=== PATIENT | male | born 1980 | race Caucasian/White ===

== ENCOUNTER 2016-07-03 22:58 | Emergency (ER) | payer SELFPAY ==
[~2016-07-03] VITALS: Ht 180.3 cm; Wt 81.0 kg
[~2016-07-03 22:58] MED LIST: CLON1TAB PO; CLON1TAB3 PO; CYCL10TA2 PO; HYDR-971 PO; HYDR12.58 PO; IBUP800T PO; IOHE240V IV; IOHE350I IV; OMEP20CA5 PO; ONDA4TAB10 SL; SERT25TA PO; TRAM50TA PO
[2016-07-03 23:00] VITALS: BP 138/101
--- NOTE | 2016-07-03 23:17 | PHYS DOC ---
General Stated Complaint: LEFT HAND INJURY Time Seen by MD: 23:15 Source: patient Problems: History of Present Illness Initial Comments Patient here for left index finger injury. Patient says that he fell about 3 weeks ago hyperextended his left index finger. He says he had some pain and swelling at the time, but went down and he was doing fine. However, 3 days ago noted increasing pain and swelling in the digit, and now says the pain goes up to his entire body and makes it such that he is in pain throughout his entire system: Time. Patient reports no new history of injury or trauma other than 3 weeks ago. He says his finger is numb and he can't move his finger because of pain as well. He has no other injuries or complaints noted or reported. He says he is taking ibuprofen at home for this without help. He notes no other increasing or decreasing factors other than any motion makes his finger pain worse. Patient's past medical history according him is unremarkable. He is an occasional smoker and occasional user of ethanol. Allergies: Coded Allergies: aspirin (Verified Allergy, Intermediate, 03/12/15) Past Medical History Medical History: no pertinent history, hepatitis, hypertension, other Surgical History: other Family History Significant Family History: heart disease Social History Smoker: less than 1 pack/day Alcohol: occasionally Review of Systems Constitutional: no symptoms reported Musculoskeletal: see HPI Skin: no symptoms reported Psychiatric/Neurological: no symptoms reported Physical Exam General Appearance: WD/WN, no apparent distress Extremities: swelling, other Neurologic/Psychiatric: no motor/sensory deficits, alert, normal mood/affect, oriented x 3 Skin: warm/dry Comments Generally this well-developed well-nourished white male in no acute distress. Vitals are as noted. Pertinent findings on physical exam shows left index finger to be somewhat swollen compared with its peers. There appears to be some mild contusion over the distal phalanx area and more prominent swelling and pain at the area of the proximal phalanx joint. There is some areas of blanching within the finger, but there is no signs of ischemia. The finger itself is warm. It blanches located dorsally only and is also seen and other digits are not involved. There is no fusiform blanching to the palmar surface appears to be uninvolved. Capillary refill is intact. This does not appear to be ischemic or vascular event at this time. There is a slight amount of bruising over the volar aspect of the DIP joint as well. Capillary refills intact. Sensation is intact. The patient is able to move the digit at the PIP and DIP joints, albeit with pain. He is able to hold extension with 5 over 5 strength, decreased range due to pain. There is no red streaks going up the palm and the digit is not held in flexion. There is no signs of tendon sheath infection. The hand itself is otherwise clear. Remainder of physical exam is quickly unremarkable. Orders, Labs, Meds Old charts note the patient is a frequent user of ER services. He only had 1 visit in 2015, had 9 visits in 2014 for a variety of issues including back pain , minor injuries, vomiting or diarrhea, dislocated shoulder, chest pain, anxiety , and other minor complaints. He was seen on multiple occasions in 2013 as well. X-rays of left index finger show what appears to be some calcific material within the PIP joint of the left index finger. There is no acute fracture or dislocation seen. This may be some calcification or bony flecks from the previously reported injury now lodging in what appears to be the joint space. It 's difficult to tell, but there also appears to be a possible nondisplaced partially healed fracture of the radial aspect of the distal end of the proximal phalanx. [id number] Patient resting comfortably in the ED. I discussed with them that it does look like he has some residue from his injury several weeks ago. Looks like there are some calcific flakes within the joint space which would be causing some swelling and some difficulty with moving the finger, and also looks like there is also a fracture as well. I suggested this time, there is nothing really acutely that we would do. We'll certainly give him a splint for comfort, and I'll write him a prescription for Ultram for pain. He denies any history of seizure activity. I suggested that if this swelling persists, he may well need to follow up with orthopedic surgeon, that written a referral to [facility] on a prescription slip given to him as well. He does voiced understanding of the need to follow up with [facility] or return to the ER sooner as needed if worsening anyway. He looks well, in no acute discomfort or stress, okay for discharge home at this time. KRZYSZTOF PAULINO MD Jul 03, 2016 23:17
[2016-07-04] MEDS ORDERED: TRAMADOL 50 MG TABLET. PO ONE
--- NOTE | 2016-07-04 07:58 | RAD ---
Left index finger, 3 views, 07/03/2016: History: Injury, residual pain and swelling There are tiny calcific densities present along the volar margin of the left PIP joint compatible with avulsion fracture fragments. They appear to arise from the proximal end of the middle phalanx. There is mild spurring at the PIP joint. No other fracture is identified. There is mild soft tissue swelling about the proximal aspect of the index finger. IMPRESSION: Small avulsion fracture on the volar aspect of the proximal end of the middle phalanx at the PIP joint.
== END 2016-07-04 00:07 | disposition home or self-care (01) ==
LOC: ER 23:00
DX: S60.022A Contusion of left index finger without damage to nail, initial encounter (principal); I10 Essential (primary) hypertension; F17.200 Nicotine dependence, unspecified, uncomplicated; Z88.6 Allergy status to analgesic agent; W19.XXXA Unspecified fall, initial encounter; Y93.89 Activity, other specified; Y99.8 Other external cause status; Y92.89 Other specified places as the place of occurrence of the external cause
CPT/HCPCS: 29130; 73140; 99284-25

== ENCOUNTER 2016-09-15 15:09 | Emergency (ER) | payer SELFPAY ==
[~2016-09-15] VITALS: Ht 177.8 cm; Wt 79.4 kg
[~2016-09-15 15:09] MED LIST changes: +CYCL-331 PO; -CYCL10TA2 PO; -IBUP800T PO; +IBUP800T19 PO
[2016-09-15 15:17] VITALS: BP 143/79
[2016-09-15] MEDS ORDERED: NITROGLYCERIN SUBLINGUAL 0.4 MG BOTTLE OF 25. SL PRN (15:45)
[2016-09-15 16:08] LABS: BASO % 1 % (0-3); EOS # 0.1 x10^3/uL (0.0-0.7); EOS % 2 % (0-3); HEMATOCRIT 41.1 % (39.0-53.0); HEMOGLOBIN 13.9 g/dL (13.0-17.5); LYMPH # 1.1 x10^3/uL (1.0-4.8); LYMPH % 19 % (24-48); MEAN CORPUSCULAR HEMOGLOBIN 32 pg (25-35); MEAN CORPUSCULAR HGB CONC 34 g/dL (31-37); MEAN CORPUSCULAR VOLUME 95 fL (79-100); MONO # 0.4 x10^3/uL (0.0-1.1); MONO % 7 % (0-9); NEUT # 4.2 x10^3uL (1.8-7.7); NEUT % 72 % (31-73); PLATELET COUNT 205 x10^3/uL (140-400); RED BLOOD COUNT 4.32 x10^6/uL (4.30-5.70); RED CELL DISTRIBUTION WIDTH 14.7 % (11.5-14.5); WHITE BLOOD COUNT 5.8 x10^3/uL (4.0-11.0)
[2016-09-15 16:16] LABS: ALBUMIN 3.6 g/dL (3.4-5.0); ALBUMIN/GLOBULIN RATIO 0.9 (1.0-1.7); CALCIUM 8.5 mg/dL (8.5-10.1); CREATININE 0.9 mg/dL (0.7-1.3); POTASSIUM 3.6 mmol/L (3.5-5.1); TOTAL PROTEIN 7.4 g/dL (6.4-8.2)
[2016-09-15] MEDS ORDERED: MORPHINE SULFATE 4 MG/ML DISP.SYRIN. IV/SQ PRN (16:30)
--- NOTE | 2016-09-15 16:33 | PHYS DOC ---
General Chief Complaint: CHEST PAIN Stated Complaint: CHEST PAIN Time Seen by MD: 15:31 Source: patient, old records Exam Limitations: no limitations Problems: History of Present Illness Initial Comments Patient is a 35-year-old male who comes in the ED complaining of chest pain. Patient states that he "felt the pain coming on" last night with dull aching across his anterior chest. He says he woke this morning at 8:30 and symptoms persisted. Says the chest pain spread across his anterior chest radiating posteriorly, it is described as sharp and stabbing the "like lightning across my chest." He denies nausea vomiting denies arm or neck symptoms but has had diaphoresis and shortness of breath in that taking deep breaths causes worsening of his symptoms. Symptoms are described as mild to moderate at rest however with certain movements and deep breaths chest pains get much worse. He says he tried to go to work but came home at 11:30 due to the discomfort. As his pain lasted through the day he decided to come for evaluation. Patient was recently [facility] from senior living he was incarcerated for 8 months. He says he became clean during that stay and denies illicit substance abuse. Coronary artery risk factors: Hyperlipidemia, hypertension, tobaccoism, and family history (patient says his father and uncles all developed coronary artery disease in their 40s). No relief with nitroglycerin sublingually 1 in the ED, patient continues requesting pain medications. Timing/Duration: getting worse (8:30 AM today), changing over time Severity: severe Modifying Factors: worse with movement, improves with rest Associated Symptoms: chest pain, diaphoresis, malaise, shortness of breath, other Allergies: Coded Allergies: aspirin (Verified Allergy, Intermediate, 03/12/15) Past Medical History Medical History: hepatitis, hypertension, other (anxiety, hyperlipidemia, polysubstance abuse) Surgical History: other Family History Significant Family History: heart disease Social History Smoker: less than 1 pack/day Alcohol: sober Drugs: none (history of polysubstance abuse including IV drug use states he is now sober denies any illicit medications.) Review of Systems Constitutional: denies chills, diaphoresis, denies fever, malaise Respiratory: denies cough, shortness of breath, denies wheezing Cardiovascular: chest pain, palpitations, denies syncope Gastrointestinal: denies abdominal pain, denies diarrhea, denies nausea, denies vomiting Genitourinary: denies dysuria, denies frequency, denies hematuria Musculoskeletal: denies back pain, denies joint swelling, denies neck pain Psychiatric/Neurological: denies headache, denies numbness, denies paresthesia Physical Exam General Appearance: mild distress (patient came from work he is sweaty and soiled) Eyes: bilateral eye normal inspection, bilateral eye PERRL, bilateral eye EOMI Ear, Nose, Throat: hearing grossly normal, normal ENT inspection, normal pharynx (dry mucous membranes) Neck: non-tender, supple Respiratory: normal breath sounds, no respiratory distress, other (tenderness to palpation of the anterior chest wall) Cardiovascular: normal peripheral pulses, tachycardia Gastrointestinal: non tender, soft Back: no CVA tenderness, no vertebral tenderness Extremities: non-tender, normal inspection, no pedal edema Neurologic/Psychiatric: 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 Interpreted by me Portable chest x-ray: Images reviewed by me no acute cardiopulmonary process noted. Patient has been tachycardic since ED arrival however almost immediately upon administration of morphine 4 mg IV heart rate improved from the low 100s to the 80s. Pertinent labs: D-dimer less than 0.5, troponin less than 0.017, creatine kinase 148, AST 121, ALT 158 Urine drug screen positive for amphetamine/methamphetamine and benzodiazepines. I discussed these results with pt, when I discussed that he was positive for amph/methamph and benzos pt replied "I knew I would be." IMPRESSIONS: Chest Wall Pain (started last night, > 12 hours with normal labs) Amphetamine abuse Benzodiazepine abuse Elevated transaminases (history of hepatitis) 35-year-old male history of hepatitis and polysubstance abuse to the ED with chest pain greater than 12 hours duration. Tachycardic and diaphoretic on arrival resolved with IV morphine no improvement with nitroglycerin. Patient symptoms appear to be resultant from substance abuse relapse and not acute coronary syndrome. Initially tachycardic patient's vital signs are now stable. Patient does have risk factors for coronary artery disease but has ruled out for acute UT on this occurrence and is stable for outpatient cardiology follow- up. Departure Time of Disposition: 17:29 Disposition: 01 HOME, SELF-CARE Diagnosis: polysubstance abuse, chest wall pain Condition: STABLE Patient Instructions: Chest Wall Pain, [id number], Methamphetamine Abuse, Complications Additional Instructions: Discontinue substance abuse, seeking medical assistance if necessary. Aggressive hydration with Gatorade or water. [id number] Tylenol as needed for discomfort. Follow-up with a doctor next week for recheck and to discuss outpatient cardiology referral for stress testing. Return to the ED with new or changing symptoms. CHRISTIANO GASPAR DO Sep 15, 2016 16:33
[2016-09-15] MEDS ORDERED: IV NORMAL SALINE 1,000ML 1,000 ML IV SCH (16:45)
--- NOTE | 2016-09-15 16:45 | RAD ---
[facility] chest, 09/15/2016: History: Chest pain Comparison is made to a study from 02/24/2015. The heart size and pulmonary vascularity are normal. The lungs are clear. There is no evidence of pleural fluid. IMPRESSION: No acute cardiopulmonary abnormality is detected.
[2016-09-15 17:09] LABS: BARBITURATES NEG (NEG); BENZODIAZEPINES POS (NEG); CANNABINOIDS NEG (NEG); COCAINE NEG (NEG); METHADONE NEG (NEG); OPIATES NEG (NEG); PHENCYCLIDINE NEG (NEG)
[2016-09-15 17:11] LABS: AMPHETAMINE/METHAMPHETAMINE POS (NEG)
[2016-09-15 17:27] LABS: COLOR,URINE AMBER
[2016-09-15 17:28] LABS: CLARITY,URINE CLOUDY; GLUCOSE,URINE NEG (NEG)
[2016-09-15 17:29] LABS: BILIRUBIN,URINE NEG (NEG); NITRITE,URINE NEG (NEG); UROBILINOGEN,URINE 8 mg/dL (0.2 mg/dL)
[2016-09-15 17:31] LABS: BACTERIA,URINE 0 /HPF (0-FEW); RBC,URINE OCC /HPF (0-2)
[2016-09-15 17:32] LABS: SQUAMOUS EPITHELIAL CELL,UR FEW /LPF
--- NOTE | 2016-09-15 18:56 | EKG ---
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
== END 2016-09-15 17:42 | disposition home or self-care (01) ==
LOC: ER 15:09
DX: R07.89 Other chest pain (principal); F19.10 Other psychoactive substance abuse, uncomplicated; E78.5 Hyperlipidemia, unspecified; F41.9 Anxiety disorder, unspecified; I10 Essential (primary) hypertension; R74.0 Nonspecific elevation of levels of transaminase and lactic acid dehydrogenase [LDH]; F17.210 Nicotine dependence, cigarettes, uncomplicated; Z88.6 Allergy status to analgesic agent
CPT/HCPCS: 36415; 71010; 80053; 80305; 80320; 81001; 82550; 83690; 84484; 85027; 85379; 85610; 85730; 93005; 96361; 96374; 99285; J2270; G0481; J7030

== ENCOUNTER 2016-09-17 13:14 | Emergency (ER) | payer SELFPAY ==
[2016-09-17 13:20] VITALS: BP 131/94
--- NOTE | 2016-09-17 14:48 | ED.ADGEN ---
Past History Past Medical History: Anxiety, Hypertension, Other Past Surgical History: Other Smoking: Cigarettes, Less than 1pk/day Alcohol Use: Occasionally Drug Use: None Adult General Chief Complaint Chief Complaint Chest wall pain HPI HPI Patient is a 35-year-old male with history of anxiety, polysubstance abuse who presents with second time in the past week with chest wall pain. 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 Denies chest pain with exertion without chest wall movement or please of chest pain at rest. Patient had negative cardiac enzymes, d-dimer, lab and EKG reveals ED visit, but was positive for methamphetamines. He denies continued drug use since that visit. No fever chills, cough, nausea vomiting or sweats. No rash, dizziness lightheadedness or headache. No shortness of breath, palpitations other acute symptoms or complaints. Review of Systems Review of Systems ROS as per HPI. Allergies Allergies Allergies Coded Allergies Type Severity Reaction Last Updated Verified aspirin Allergy Intermediate 03/12/15 Yes Physical Exam Physical Exam Constitutional: Well developed, well nourished, no acute distress, non-toxic appearance. HENT: Normocephalic, atraumatic, bilateral external ears normal, oropharynx moist, no oral exudates, nose normal. Eyes: PERRLA, EOMI, conjunctiva normal, no discharge. Neck: Normal range of motion, no tenderness, supple, no stridor. Cardiovascular:Heart rate regular rhythm, no murmur Lungs & Thorax: Bilateral breath sounds clear to auscultation. Left anterior chest wall pain, tenderness, no subcutaneous emphysema bony crepitus. Abdomen: Bowel sounds normal, soft, tenderness or guarding. Skin: Warm, dry, no erythema, no rash. Extremities: Negative Unique signs. Neurologic: Alert and oriented X 3, normal motor function, normal sensory function, no focal deficits noted. Psychologic: Affect normal, judgement normal, mood normal. EKG EKG [EKG: Normal sinus rhythm, QRS contour abnormality, no acute ST-T wave changes.] Radiology/Procedures Radiology/Procedures [] Course & Med Decision Making Course & Med Decision Making Pertinent Labs and Imaging studies reviewed. (See chart for details) [Symptoms, and imaging studies reviewed. Patient with reproducible chest wall pain, negative troponin despite several days of symptoms. Recommend continued supportive care with PCP follow-up. Return precautions reviewed.] Final Impression Final Impression [1. Chest wall pain] Problems: Dragkelly Disclaimer Dragon Disclaimer This electronic medical record was generated, in whole or in part, using a voice recognition dictation system. ROMY ROSS DO Sep 17, 2016 14:48
--- NOTE | 2016-09-17 18:12 | EKG ---
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
== END 2016-09-17 14:48 | disposition home or self-care (01) ==
LOC: ER 13:14
DX: R07.89 Other chest pain (principal); I10 Essential (primary) hypertension; F41.9 Anxiety disorder, unspecified; F17.210 Nicotine dependence, cigarettes, uncomplicated; Z88.6 Allergy status to analgesic agent
CPT/HCPCS: 84484; 93005; 99283-25

== ENCOUNTER 2017-01-27 20:21 | Emergency (ER) | payer SELFPAY ==
[~2017-01-27] VITALS: Ht 177.8 cm; Wt 83.0 kg
--- NOTE | 2017-01-27 20:34 | ED.ADGEN ---
Past History Past Medical History: Hypertension Past Surgical History: No Surgical History Smoking: Cigarettes, Less than 1pk/day Alcohol Use: Occasionally Drug Use: None Adult General Chief Complaint Chief Complaint "What the fuck.. ".." I am not going to talk to you fuckers..." " Fuck off. " " They are my meds to fucking take..." HPI HPI Patient is a 36 year old male who presents with hx. found down with mental status change. Initially unconscious, face down in the rain. Pt. PD referral for mental status change. Pt. recently filled Rx. Clonapam 0.5 mg 90 tabs, lisinopril 10, and Flexeril 10 x 30.on 01/26/2017. Pt. had empty bottle of clonazepam next to him. Pt. Pinpoint pupils and very sedated. Requires multiple questions to get answers and noxious stimuli at times. Bribes to get cooperation. Patient sitting upright in bed, resisting attempts to obtain vitals and get him undressed. Review of Systems Review of Systems Patient has no complaints Constitutional: Denies fever or chills [] Eyes: Denies change in visual acuity, redness, or eye pain [] HENT: Denies nasal congestion or sore throat [] Respiratory: Denies cough or shortness of breath [] Cardiovascular: No additional information not addressed in HPI [] GI: Denies abdominal pain, nausea, vomiting, bloody stools or diarrhea [] : Denies dysuria or hematuria [] Musculoskeletal: Denies back pain or joint pain [] Integument: Denies rash or skin lesions [] Neurologic: Denies headache, focal weakness or sensory changes [] Endocrine: Denies polyuria or polydipsia [] Family History Family History Not currently available Current Medications Current Medications Current Medications Medications (Trade) Dose Ordered Sig/Daniella Start Time Stop Time Status Last Admin Dose Admin Atropine Sulfate 0.5 mg 1X ONCE 01/28/17 02:15 01/28/17 02:24 DC 01/27/17 23:26 0.5 MG Ceftriaxone Sodium 2 gm/ Sodium Chloride 100 ml @ 200 mls/hr 1X ONCE 01/28/17 02:15 01/28/17 02:44 DC 01/28/17 02:15 200 MLS/HR Ceftriaxone Sodium (Rocephin) 2 gm STK-MED ONCE 01/28/17 03:05 01/28/17 03:06 DC Dopamine HCl/ Dextrose 250 ml @ 15.564 mls/ hr 1X ONCE 01/28/17 02:15 01/28/17 18:18 01/27/17 23:20 15.564 MLS/HR Info (Do NOT chart on this entry -- for MONITORING) 1 each PRN DAILY PRN 01/27/17 23:55 01/29/17 23:54 Iohexol (Omnipaque 300 Mg/ml) 75 ml 1X ONCE 01/27/17 23:45 01/27/17 23:49 DC 01/28/17 03:31 75 ML Lidocaine HCl (Xylocaine 2% Topical 30gm Tube) 1 harvey 1X ONCE 01/28/17 02:15 01/28/17 02:24 DC 01/27/17 23:00 1 HARVEY Metronidazole 100 ml @ 200 mls/hr 1X ONCE 01/28/17 02:15 01/28/17 02:44 DC 01/28/17 02:15 200 MLS/HR Multivitamins/ Minerals (Infuvite Adult) 10 ml STK-MED ONCE 01/27/17 20:56 01/27/17 20:57 DC Multivitamins/ Minerals 10 ml/ Folic Acid 1 mg/ Thiamine HCl 100 mg/Sodium Chloride 1,011.2 ml @ 1,000 mls/ hr Q1H 01/27/17 20:45 01/27/17 21:21 DC 01/27/17 20:45 1,000 MLS/HR Norepinephrine Bitartrate (Levophed) 4 mg STK-MED ONCE 01/27/17 23:07 01/27/17 23:08 DC Norepinephrine Bitartrate 8 mg/ Sodium Chloride 258 ml @ 0 mls/hr CONT PRN 01/28/17 02:15 01/27/17 23:15 15.6 MLS/HR Sodium Bicarbonate 50 meq 1X ONCE 01/28/17 03:45 01/28/17 03:46 UNV 01/27/17 22:25 50 MEQ Sodium Chloride 100 ml @ As Directed STK-MED ONCE 01/28/17 03:05 01/28/17 03:06 DC Thiamine HCl 200 mg STK-MED ONCE 01/27/17 20:57 01/27/17 20:58 DC See nursing for home medications Allergies Allergies Allergies Coded Allergies Type Severity Reaction Last Updated Verified aspirin Allergy Intermediate 03/12/15 Yes Physical Exam Physical Exam Constitutional: in acute distress, intoxicated appearance. [] HENT: Normocephalic, atraumatic, bilateral external ears normal, oropharynx moist, no oral exudates, nose normal. Very poor dentition. Eyes: PERRLA, EOMI, conjunctiva normal, no discharge. [] Neck: Normal range of motion, no tenderness, supple, no stridor. [] Cardiovascular:Heart rate regular rhythm, no murmur [] Lungs & Thorax: Bilateral breath sounds equal apex with scattered wheezes and rhonchi on auscultation . Trachea mid line. Abdomen: Bowel sounds normal, soft, no tenderness, no masses, no pulsatile masses. [] Skin: Warm, dry, no erythema, no rash. [] Back: No tenderness, no CVA tenderness. [] Extremities: No tenderness, no cyanosis, no clubbing, ROM intact, no edema. [ Neurologic: Sedated but oriented X 3, no gross motor function orl sensory function sensory function deficits, no focal deficits noted. Discoordinated. Fights with nursing to prevent being undressed. Psychologic: Affect Angry., judgement poor insight, mood depressed Current Patient Data Vital Signs Vital Signs Date Time Temp Pulse Resp B/P (MAP) Pulse Ox O2 Delivery O2 Flow Rate FiO2 01/28/17 03:25 100 01/27/17 20:25 97.9 68 11 Room Air Lab Results Laboratory Tests Test 01/27/17 20:43 01/27/17 21:10 01/27/17 21:25 01/28/17 02:20 White Blood Count 7.4 x10^3/uL (4.0-11.0) Red Blood Count 4.59 x10^6/uL (4.30-5.70) Hemoglobin 14.9 g/dL (13.0-17.5) Hematocrit 43.8 % (39.0-53.0) Mean Corpuscular Volume 96 fL (79-100) Mean Corpuscular Hemoglobin 33 pg (25-35) Mean Corpuscular Hemoglobin Concent 34 g/dL (31-37) Red Cell Distribution Width 13.9 % (11.5-14.5) Platelet Count 218 x10^3/uL (140-400) Neutrophils (%) (Auto) 64 % (31-73) Lymphocytes (%) (Auto) 24 % (24-48) Monocytes (%) (Auto) 10 % (0-9) H Eosinophils (%) (Auto) 1 % (0-3) Basophils (%) (Auto) 1 % (0-3) Neutrophils # (Auto) 4.7 x10^3uL (1.8-7.7) Lymphocytes # (Auto) 1.8 x10^3/uL (1.0-4.8) Monocytes # (Auto) 0.7 x10^3/uL (0.0-1.1) Eosinophils # (Auto) 0.1 x10^3/uL (0.0-0.7) Basophils # (Auto) 0.1 x10^3/uL (0.0-0.2) Sodium Level 139 mmol/L (136-145) Potassium Level 4.0 mmol/L (3.5-5.1) Chloride Level 104 mmol/L (98-107) Carbon Dioxide Level 30 mmol/L (21-32) Anion Gap 5 (6-14) L Blood Urea Nitrogen 11 mg/dL (8-26) Creatinine 1.1 mg/dL (0.7-1.3) Estimated GFR (Cockcroft-Gault) 75.7 Glucose Level 89 mg/dL (70-99) Calcium Level 8.7 mg/dL (8.5-10.1) Magnesium Level 2.3 mg/dL (1.8-2.4) Total Bilirubin 2.1 mg/dL (0.2-1.0) H Direct Bilirubin 0.4 mg/dL (0.0-0.2) H Aspartate Amino Transferase (AST) 93 U/L (15-37) H Alanine Aminotransferase (ALT) 149 U/L (16-63) H Alkaline Phosphatase 94 U/L (46-116) Total Protein 8.1 g/dL (6.4-8.2) Albumin 4.4 g/dL (3.4-5.0) Salicylates Level < 0.2 mg/dL (2.8-20.0) L Salicylate Last Dose Date Unknown Salicylate Last Dose Time Unknown Acetaminophen Level < 2.0 mcg/mL (10-30) L Acetaminophen Last Dose Date Unknown Acetaminophen Last Dose Time Unknown Ethyl Alcohol Level < 10 mg/dL (0-10) Urine Collection Type U cath Urine Color Straw Urine Clarity Hazy Urine pH 5.5 Urine Specific [place] 1.025 Urine Protein Neg (NEG-TRACE) Urine Glucose (UA) Neg mg/dL (NEG) Urine Ketones (Stick) Neg mg/dL (NEG) Urine Blood Neg (NEG) Urine Nitrite Neg (NEG) Urine Bilirubin Neg (NEG) Urine Urobilinogen Dipstick 0.2 mg/dL (0.2 mg/dL) Urine Leukocyte Esterase Neg (NEG) Urine RBC 3-5 /HPF (0-2) Urine WBC 1-4 /HPF (0-4) Urine Squamous Epithelial Cells None /LPF Urine Bacteria 0 /HPF (0-FEW) Urine Hyaline Casts Many /HPF Urine Mucus Marked /LPF Urine Opiates Screen Neg (NEG) Urine Methadone Screen Neg (NEG) Urine Barbiturates Neg (NEG) Urine Phencyclidine Screen Neg (NEG) Urine Amphetamine/Methamphetamine Neg (NEG) Urine Benzodiazepines Screen Pos (NEG) Urine Cocaine Screen Neg (NEG) Urine Cannabinoids Screen Pos (NEG) Urine Ethyl Alcohol Neg (NEG) Prothrombin Time 11.6 SEC (9.4-11.4) H Prothrombin Time INR 1.1 (0.9-1.1) PTT 25 SEC (23-33) Blood pH 7.31 (7.35-7.46) L 7.43 (7.35-7.46) Blood Gas PCO2 56 mmHg (35-46) H 33 mmHg (35-46) L Blood Gas PO2 214 mmHg (80-100) H 167 mmHg (80-100) H Blood Gas HCO3 28 mmol/L (21-28) 22 mmol/L (21-28) Arterial Bld O2 Saturation (Calc) 100 % (92-99) H 100 % (92-99) H FiO2 100 % 60 % Test 01/28/17 02:35 Lactic Acid Level 0.6 mmol/L (0.4-2.0) EKG EKG My interpretation EKG shows a sinus rhythm at 77 bpm.. Repeat EKG at [address] changes from prior. Sinus rate of 65[] Radiology/Procedures Radiology/Procedures I interpretation of chest x-ray shows borderline cardiomegaly. Some cephalization. Does have a large stomach bubble. My interpretation of second chest x-ray shows ET tube just above the linda. An NG tube below diaphragm. Central line on left. No obvious pneumothorax.[] My interpretation CT of head and neck and chest show no shift, mass, edema, or bleed. No obvious fracture of skull or neck. Bilateral findings of sinus thickening or sinusitis. No obvious expanding hematoma of neck. CT of chest shows no obvious pulmonary embolism. No pneumothorax. 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 Does have bilateral infiltrates which would be consistent with aspiration/atelectasis and pneumonia.. Tip of central line resides in the subclavian vein. ET appears to be in right mainstem .bronchus. ( ET pulled back). Course & Med Decision Making Course & Med Decision Making Pertinent Labs and Imaging studies reviewed. (See chart for details) Patient's mental status gradually deteriorated, as well as his ability pertinent to protect his airway. Patient required intubation and central line placement. Patient had episodes of hypotension, bradycardia and dysrhythmias. Procedure notes- Intubation Patient received succinylcholine 100 mg, 7.5 tube placed with Dexter scope- at 24 at Teeth. BS=, with fog and CO2, CXR post adequate position, but just above linda. Vent rate `16, PEEP 6, 60% AC OG adequate placement below diaphragm. Central line placement- Need for pressor's and fluids. Sterile gowns, mask, head cap, and draping. Kit prep, Trendelenburg position. Line place via Seldinger technique, in left external IJ, after failed attempt by left subclavian. CXR post showed adequate placement with no pneumothorax. . Line sutured in place with biopatch. Direct pressure for site bleeding. Op site dressing. Discussed presentation, testing and tx. plan with Dr. Ayoub- [facility] Hospitalist. - accepts pt to [facility] ET had advance by follow up CT= reposition at 24 cm. Patient appeared to be more alert and responsive to questions at time of transfer to [facility] at 0400 hours Final Impression Final Impression 1. Mental Status change 2. Suspect Clonazpam OD[] 3. Respiratory Failure 4. Sinusitis 5. Elevated AST/ALT 6. Hypotension- require 30+ cc kilo, Levophed. 7. Bradycardia- required pacer, and 1.5 atropine and dopamine 5 dino 8. Suspect Aspiration/ Pneumonia/ Pneumonitis/Atelectasis 9. Past Hx. Polysubstance Abuse and Tobacco , Marijuana Abuse Critical care- 120 min- not counting procedures.-Continue management for dysrhythmia, hypertension, medical and vent management. See Critical Care flow sheet for details. - Problems: Dragon Disclaimer Dragon Disclaimer This electronic medical record was generated, in whole or in part, using a voice recognition dictation system. GATITO ALEXIS MD Jan 27, 2017 20:34
[2017-01-27] MEDS ORDERED: IV NORMAL SALINE 1,000ML 1,000 ML IV SCH (20:39)
[2017-01-27] MEDS ORDERED: MVI, ADULT NO.4 WITH VIT K 10 ML, FOLIC ACID SYRINGE for ER 1 MG, THIAMINE 100 MG in IV... IV SCH ×4 (20:45)
[2017-01-27] MEDS ORDERED: LIDOCAINE 2% TOPICAL JELLY 30GM TUBE. TP ONE (20:54)
[2017-01-27] MEDS ORDERED: MVI, ADULT NO.4 WITH VIT K 10 ML VIAL IV ONE (20:56)
[2017-01-27] MEDS ORDERED: THIAMINE 200 MG/2 ML VIAL. IV ONE (20:57)
[2017-01-27] MEDS: IV NORMAL SALINE 1,000ML 1,000 ML IV ONE ×2 (21:00→23:15)
[2017-01-27 21:15] LABS: BASO # 0.1 x10^3/uL (0.0-0.2); BASO % 1 % (0-3); EOS # 0.1 x10^3/uL (0.0-0.7); EOS % 1 % (0-3); HEMATOCRIT 43.8 % (39.0-53.0); HEMOGLOBIN 14.9 g/dL (13.0-17.5); LYMPH # 1.8 x10^3/uL (1.0-4.8); LYMPH % 24 % (24-48); MEAN CORPUSCULAR HEMOGLOBIN 33 pg (25-35); MEAN CORPUSCULAR HGB CONC 34 g/dL (31-37); MEAN CORPUSCULAR VOLUME 96 fL (79-100); MONO # 0.7 x10^3/uL (0.0-1.1); MONO % 10 % (0-9); NEUT # 4.7 x10^3uL (1.8-7.7); NEUT % 64 % (31-73); PLATELET COUNT 218 x10^3/uL (140-400); RED BLOOD COUNT 4.59 x10^6/uL (4.30-5.70); RED CELL DISTRIBUTION WIDTH 13.9 % (11.5-14.5); WHITE BLOOD COUNT 7.4 x10^3/uL (4.0-11.0)
[2017-01-27 21:26] LABS: ACETAMIN < 2.0 mcg/mL (10-30); ETHANOL < 10 mg/dL (0-10)
[2017-01-27 21:27] LABS: SALIC < 0.2 mg/dL (2.8-20.0)
[2017-01-27 21:28] LABS: ALBUMIN 4.4 g/dL (3.4-5.0); CALCIUM 8.7 mg/dL (8.5-10.1); CREATININE 1.1 mg/dL (0.7-1.3); DIRECT BILIRUBIN 0.4 mg/dL (0.0-0.2); GFR 75.7; MAGNESIUM 2.3 mg/dL (1.8-2.4); TOTAL BILIRUBIN 2.1 mg/dL (0.2-1.0); TOTAL PROTEIN 8.1 g/dL (6.4-8.2)
[2017-01-27 21:31] LABS: AMPHETAMINE/METHAMPHETAMINE NEG (NEG); BARBITURATES NEG (NEG); BENZODIAZEPINES POS (NEG); CANNABINOIDS POS (NEG); COCAINE NEG (NEG); METHADONE NEG (NEG); OPIATES NEG (NEG); PHENCYCLIDINE NEG (NEG)
[2017-01-27 21:35] LABS: BGAS PH 7.31 (7.35-7.46)
[2017-01-27 21:42] LABS: BILIRUBIN,URINE NEG (NEG); CLARITY,URINE HAZY; COLOR,URINE STRAW; GLUCOSE,URINE NEG (NEG); NITRITE,URINE NEG (NEG); UROBILINOGEN,URINE 0.2 mg/dL (0.2 mg/dL)
[2017-01-27 21:43] LABS: BACTERIA,URINE 0 /HPF (0-FEW)
[2017-01-27 21:44] LABS: HYALINE CASTS, URINE MANY /HPF
[2017-01-27] MEDS ORDERED: NOREPINEPHRINE BITARTRATE 4 MG/4 ML VIAL. IV ONE (23:07)
[2017-01-27] MEDS ORDERED: ATROPINE 0.5 MG/5 ML DISP.SYRIN. ONE ×2 (23:16→23:19)
[2017-01-27] MEDS ORDERED: IOHEXOL 300 MG/ML 75 ML VIAL. IV ONE (23:45)
[2017-01-27] MEDS ORDERED: CONTRAST GIVEN MC PRN (23:55)
--- NOTE | 2017-01-28 01:49 | RAD ---
CT HEAD AND CERVICAL SPINE WO dated 01/27/2017 11:22 PM Indication: Head and neck pain.Drug overdose today, found unresponsive, AMS. Intubated with OG tube placement. Study from 10/09/2012, 03/21/2007 sent for comparison.. Comparison: 03/21/2007 Technique: Contiguous axial imaging of the head was performed from skull base to vertex. In addition, axial imaging of the cervical spine acquired with thin cut coronal and sagittal reconstruction. One or more of the following individualized dose reduction techniques were utilized for this examination: 1. Automated exposure control 2. Adjustment of the mA and/or kV according to patient size 3. Use of iterative reconstruction technique Findings: Ventricles and sulci within normal limits for age. No midline shift or mass effect. Brain parenchyma is of normal attenuation. No hemorrhage or extra-axial collection. Posterior fossa and brainstem unremarkable. Mild mucosal thickening bilateral ethmoid air cells. Mild mucosal thickening of the right maxillary sinus. Mastoid air cells are clear. No apparent calvarial abnormality. Images of cervical spine acquired from skull base to T1. Sagittal alignment is anatomic. Vertebral body heights are maintained. No prevertebral soft tissue swelling. Posterior elements are intact. No significant spondylotic changes. There is mild uncovertebral spurring with minimal broad-based bulging at C5-C6 and C6-C7. The bony canal and foramina are adequate. No significant soft tissue abnormality. IMPRESSION HEAD: 1. No evidence of acute intracranial abnormality. 2. Mild sinus disease. Impression cervical spine: 1. No evidence of fracture or malalignment. 2. Mild spondylotic changes. Electronically signed by: Dino Stafford MD (01/28/2017 1:45 AM) [id number]
--- NOTE | 2017-01-28 01:58 | RAD ---
CT ANGIOGRAPHY CHEST dated 01/27/2017 11:22 PM Indication: Chest pain, found unresponsive drug overdose. Evaluate for PE. Comparison: No comparison is available. Technique: Contiguous axial imaging the head and neck performed following the intravenous administration of intravenous contrast. Study was performed as dedicated CTA with thin cut coronal MIPS 3-D reconstruction. One or more of the following individualized dose reduction techniques were utilized for this examination: 1. Automated exposure control 2. Adjustment of the mA and/or kV according to patient size 3. Use of iterative reconstruction technique Findings: Contrast bolus is adequate. Study is somewhat limited due to bilateral airspace disease. No evidence of central, lobar or proximal segmental pulmonary embolus. The distal segmental and subsegmental branches are not well evaluated based on technique. Heart size mildly enlarged. No pericardial effusion. No mediastinal, hilar or axillary lymphadenopathy. Central airways are patent. Endotracheal tube tip extends into the proximal right mainstem bronchus. There is consolidation of the dependent lower lobes, left greater than right. Tiny pleural effusion on the left. No pneumothorax. Limited images of upper abdomen unremarkable. No acute bony abnormality. IMPRESSION: 1. No evidence of central, lobar or proximal segmental pulmonary embolus. 2. Bibasilar airspace disease, atelectasis versus pneumonia. Given the clinical history this could be related to aspiration. 3. Endotracheal tube tip extends minimally into the right mainstem bronchus. Suggest pulling tube back 2 to 3 cm. Electronically signed by: Dino Stafford MD (01/28/2017 1:55 AM) [id number]
[2017-01-28] MEDS ORDERED: ATROPINE 1 MG/10 ML DISP.SYRIN IV ONE ×3 (02:15)
[2017-01-28] MEDS ORDERED: LIDOCAINE 2% TOPICAL JELLY 30GM TUBE. TP ONE (02:15)
[2017-01-28] MEDS ORDERED: IV NORMAL SALINE 1,000ML 1,000 ML IV ONE ×4 (02:15)
[2017-01-28] MEDS ORDERED: NOREPINEPHRINE BITARTRATE 8 MG in IV NORMAL SALINE 250ML 250 ML IV PRN (02:15)
[2017-01-28 02:39] LABS: BGAS PH 7.43 (7.35-7.46)
[2017-01-28] MEDS ORDERED: IV NORMAL SALINE 100ML 100 ML ONE (03:05)
[2017-01-28 03:40] VITALS: BP 107/68
[2017-01-28] MEDS ORDERED: SODIUM BICARB ADULT 8.4% 50 MEQ/50 ML DISP.SYRIN. IV ONE (03:45)
[2017-01-28] MEDS ORDERED: PROPOFOL 20 ML IV ONE (07:00)
[2017-01-28] MEDS ORDERED: PROPOFOL 20 ML IV SCH (07:10)
[2017-01-28] MEDS ORDERED: KETAMINE HCL 500 MG/10 ML VIAL. IV ONE (07:30)
[2017-01-28] MEDS ORDERED: SUCCINYLCHOLINE 200 MG/10 ML VIAL. IV ONE ×2 (07:30)
--- NOTE | 2017-01-28 07:49 | EKG ---
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
--- NOTE | 2017-01-28 08:09 | RAD ---
AP portable chest radiograph 01/27/2017 Clinical History: Post intubation. An AP portable erect digital radiograph of the chest was obtained. Comparison study is dated 01/27/2017. An ET tube has been placed. The tip of this tube extends to overlie the trachea 2 cm above the level of the linda. A NG tube have been placed. The tip of this tube is off this radiograph in the region of the antrum of the stomach. The cardiac silhouette is normal in size. The thoracic aorta is mildly tortuous. Improving patchy left lower lobe atelectasis and/or infiltrate is seen. Blunting of the left costophrenic angle is seen which could reflect a very small left pleural effusion. No pneumothorax is noted. The osseous structures are unchanged. Impression: 1. ET and OG tube position as outlined above. 2. Improving left lower lobe infiltrate/atelectasis.
--- NOTE | 2017-01-28 08:15 | RAD ---
AP portable chest radiograph 01/27/2017 Clinical History: Overdose. An AP portable erect digital radiograph of the chest was obtained. Comparison study is dated 09/15/2016. The cardiac silhouette is normal in size. The thoracic aorta is minimally tortuous. Patchy left lower lobe atelectasis and/or infiltrate is noted. Blunting of the left costophrenic angle is seen which could reflect a very small left pleural effusion. No pneumothorax is seen. The osseous structures are grossly intact. Impression: Patchy left lower lobe atelectasis and/or infiltrate.
--- NOTE | 2017-01-29 13:18 | EKG ---
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
== END 2017-01-28 03:40 | disposition short-term general hospital (02) ==
LOC: ER 20:21
DX: R41.82 Altered mental status, unspecified (principal); I12.9 Hypertensive chronic kidney disease with stage 1 through stage 4 chronic kidney disease, or unspecified chronic kidney disease; N18.9 Chronic kidney disease, unspecified; J32.9 Chronic sinusitis, unspecified; I95.9 Hypotension, unspecified; R00.1 Bradycardia, unspecified; F19.10 Other psychoactive substance abuse, uncomplicated; F17.210 Nicotine dependence, cigarettes, uncomplicated; F12.10 Cannabis abuse, uncomplicated
CPT/HCPCS: 31500; 36415; 36556; 36600; 51702; 70450; 71010; 71275; 72125; 80048; 80076; 80307; 81001; 82803; 83605; 83735; 85025; 85610; 85730; 87040; 93005; 94002; 94003; 96361; 96365; 96366; 96368; 96375; 99291; 99292; G0480; J0330; J0461; J0696; J1265; J2704; J3490; J7050; Q9967; G0479; J7030